=== PATIENT | male | born 1965 | race Caucasian/White ===

== ENCOUNTER 2022-09-29 18:11 | Emergency (ER) | payer MEDICAID ==
[~2022-09-29] VITALS: Ht 172.7 cm; Wt 104.3 kg
[2022-09-29 18:11] VITALS: BP_SYST 115
--- NOTE | 2022-09-29 18:15 | NUR ---
BROUGHT IN BY [facility], TRIAGED AND PLACED IN HALLWAY CHAIR, PT ROAMING AROUND ER AND EATING ALL THE FOOD OFF PEOPLES TABLES. NO SEIZURE ACTIVITY
--- NOTE | 2022-09-29 18:20 | NUR ---
ACCORDING TO MEDICS, PT WAS AT A BURRITO STAND, LAID ON THE GROUND AND HAD A SHAKING EPISODE. PT WALKING AROUND ER AND EATING FOOD
[2022-09-29] MEDS ORDERED: ALBMDI INH ×2 (18:55→19:01)
[2022-09-29] MEDS ORDERED: LEVE500T9 PO ×2 (18:55→19:01)
[2022-09-29] MEDS ORDERED: ACET-2634 PO ×2 (18:56→19:01)
[2022-09-29] MEDS ORDERED: ACETAMINOPHEN 500 MG TABLET PO ONE (19:00)
[2022-09-29] MEDS ORDERED: levETIRAcetam 500 MG TABLET PO ONE (19:00)
--- NOTE | 2022-09-29 20:01 | NUR ---
Patient given written and verbal discharge instructions and verbalizes understanding. ER MD discussed with patient the results and treatment provided. Patient in stable condition. ID arm band removed. Rx of Tylenol,Albuterol,Keppra given. Patient educated on pain management and to follow up with PMD. Pain Scale 0/10. Opportunity for questions provided and answered. Medication side effect fact sheet provided.
[2022-09-29 20:06] VITALS: BP_SYST 118
== END 2022-09-29 20:06 | disposition home or self-care (01) ==
LOC: SED 18:11
DX: Z76.0 Encounter for issue of repeat prescription (principal); R56.9 Unspecified convulsions; J45.909 Unspecified asthma, uncomplicated; R51.9 Headache, unspecified; Z79.899 Other long term (current) drug therapy
CPT/HCPCS: 99283

== ENCOUNTER 2022-09-30 19:48 | Emergency (ER) | payer MEDICAID ==
[~2022-09-30] VITALS: Ht 175.3 cm; Wt 79.4 kg
[~2022-09-30 19:48] MED LIST: ACET-2634 PO; ALBMDI INH; LEVE500T9 PO
[2022-09-30 19:56] VITALS: BP_SYST 112
--- NOTE | 2022-09-30 20:00 | NUR ---
PT FROM HOME WITH C/O OF RIGHT RIB PAIN. PT REPORTS BREAKING RIB AFTER FALL FROM SEIZURE 3 DAYS AGO. PT A&O X3 AND FOLLOWING COMMANDS. PT TO REMAIN ON EMS GURNEY IN ER UNTIL BED MADE AVAILABLE.
--- NOTE | 2022-09-30 20:45 | NUR ---
ER Dr.Dela Torres examining patient in the [facility].
[2022-09-30 21:20] LABS: BASOPHILS # (AUTO) 0.1 K/uL (0.0-0.2); BASOPHILS % (AUTO) 1.2 % (0.0-2.0); EOSINOPHILS # (AUTO) 0.4 K/uL (0.0-0.4); EOSINOPHILS % (AUTO) 5.2 % (0.0-4.0); HEMATOCRIT 38.7 % (36-54); HEMOGLOBIN 12.3 g/dL (14.0-18.0); LYMPHOCYTES # (AUTO) 1.7 K/uL (1.0-5.5); LYMPHOCYTES % (AUTO) 21.7 % (20.5-51.5); MEAN CORPUSCULAR HEMOGLOBIN 28 pg (27-31); MEAN CORPUSCULAR HGB CONC 32 % (32-36); MEAN CORPUSCULAR VOLUME 88 fL (79.0-98.0); MONOCYTES # (AUTO) 0.8 K/uL (0.0-1.0); MONOCYTES % (AUTO) 9.8 % (1.7-9.3); NEUTROPHILS # (AUTO) 4.8 K/uL (1.8-7.7); NEUTROPHILS % (AUTO) 62.1 % (40.0-70.0); PLATELET COUNT (AUTO) 295 K/uL (130-430); RED BLOOD CELL COUNT(AUTO) 4.41 MIL/uL (4.2-6.2); RED CELL DISTRIBUTION WIDTH 16.8 % (9.0-15.0); WHITE BLOOD COUNT (AUTO) 7.8 K/uL (4.8-10.8)
[2022-09-30 21:25] LABS: CALCIUM 9.1 mg/dL (8.4-11.0); CREATININE 0.75 mg/dL (0.55-1.30)
[2022-09-30 21:40] LABS: ALBUMIN 3.6 g/dL (3.4-4.8); TOTAL BILIRUBIN 0.2 mg/dL (0.0-1.0)
--- NOTE | 2022-10-01 00:40 | NUR ---
Pt refused to sign discharge note.
[2022-10-01 00:46] VITALS: BP_SYST 118
--- NOTE | 2022-10-01 00:46 | NUR ---
Patient given written and verbal discharge instructions and verbalizes understanding. ER MD discussed with patient the results and treatment provided. Patient in stable condition. ID arm band removed. no Rx of given. Patient educated on pain management and to follow up with PMD. Pain Scale 3/10. Opportunity for questions provided and answered. Medication side effect fact sheet provided. Pt refused to sign ACI.
== END 2022-10-01 00:46 | disposition home or self-care (01) ==
LOC: SED 19:48
DX: F10.129 Alcohol abuse with intoxication, unspecified (principal); R07.81 Pleurodynia; R56.9 Unspecified convulsions; J45.909 Unspecified asthma, uncomplicated; Y90.6 Blood alcohol level of 120-199 mg/100 ml; Z79.899 Other long term (current) drug therapy
CPT/HCPCS: 99284; 71045; 80053; 85025; 36415; G0482